=== PATIENT | female | born 1970 | race African-American/Black ===

== ENCOUNTER 2023-05-07 07:13 | Emergency (ER) | payer OTHER ==
[2023-05-07] MEDS ORDERED: Famotidine 20 MG TAB ONE (07:53)
[2023-05-07] MEDS ORDERED: methylPREDNISolone Sod Succ/PF 125 MG/2 ML VIAL ONE (07:53)
[2023-05-07] MEDS ORDERED: diphenhydrAMINE 50 MG CAP ONE (07:53)
== END 2023-05-07 09:36 | disposition home or self-care (01) ==
LOC: ERS 07:13 → EEVIPCON 07:13 → ERS 09:36
DX: D84.1 Defects in the complement system (principal); T78.40XA Allergy, unspecified, initial encounter
CPT/HCPCS: 96372; 99284; J2930